=== PATIENT | male | born 1940 | race Caucasian/White ===

== ENCOUNTER 2017-04-14 08:03 | Outpatient (CLI) | payer MEDICARE, OTHER ==
[2017-04-14 15:58] LABS: BASOPHILS # (AUTO) 0.1 10^3/uL (0.0-0.1); BASOPHILS % (AUTO) 1.3 %; EOSINOPHILS # (AUTO) 0.2 10^3/uL (0.0-0.7); EOSINOPHILS % (AUTO) 2.9 %; HCT - HEMATOCRIT 43.4 % (42.0-52.0); HGB - HEMOGLOBIN 14.9 g/dL (14.0-18.0); LYMPHOCYTES # (AUTO) 2.1 10^3/uL (1.5-3.5); LYMPHOCYTES % (AUTO) 33.4 %; MEAN CORPUSCULAR HEMOGLOBIN 32.7 pg (27.0-31.0); MEAN CORPUSCULAR HGB CONC 34.2 g/dL (32.0-36.0); MEAN CORPUSCULAR VOLUME 95.5 fL (80.0-94.0); MEAN PLATELET VOLUME 8.3 fL (7.4-11.4); MONOCYTES # (AUTO) 0.7 10^3/uL (0.0-1.0); MONOCYTES % (AUTO) 11.5 %; NEUTROPHILS # (AUTO) 3.2 10^3/uL (1.5-6.6); NEUTROPHILS % (AUTO) 50.9 %; RED BLOOD COUNT 4.55 10^6/uL (4.70-6.10); UNCORRECTED WHITE BLOOD COUNT 6.3 x10^3/uL; WHITE BLOOD COUNT 6.3 x10^3/uL (4.8-10.8)
[2017-04-14 16:12] LABS: ALBUMIN/GLOBULIN RATIO 1.3 (1.0-2.2); BUN - BLOOD UREA NITROGEN 17 mg/dL (6-20); CALCIUM 9.1 mg/dL (8.5-10.3); CARBON DIOXIDE - CO2 28 mmol/L (21-32); CHLORIDE 103 mmol/L (101-111); CHOL/HDL RATIO 4.1 (<5.0); CHOLESTEROL 231 mg/dL; GFR - MDRD 73 (>89); GLUCOSE 91 mg/dL (70-100); HDL CHOLESTEROL 57 mg/dL; LDL/HDL RATIO 2.9 (<3.6); POTASSIUM 4.5 mmol/L (3.5-5.0); SODIUM 138 mmol/L (135-145); TOTAL PROTEIN 6.9 g/dL (6.7-8.2); TRIGLYCERIDES 57 mg/dL; VLDL CHOLESTEROL 11 mg/dL
== END 2017-04-14 08:04 | disposition home or self-care (01) ==
LOC: LAB.R 08:03
PROVIDERS: ATTEND Internal Medicine
DX: E78.2 Mixed hyperlipidemia (principal); M15.9 Polyosteoarthritis, unspecified; Z79.899 Other long term (current) drug therapy
CPT/HCPCS: 80053; 80061; 85025

== ENCOUNTER 2018-04-20 10:12 | Outpatient (CLI) | payer MEDICARE, OTHER ==
[2018-04-20 15:01] LABS: BASOPHILS # (AUTO) 0.1 10^3/uL (0.0-0.1); BASOPHILS % (AUTO) 1.2 %; EOSINOPHILS # (AUTO) 0.1 10^3/uL (0.0-0.7); EOSINOPHILS % (AUTO) 1.7 %; LYMPHOCYTES % (AUTO) 33.1 %; MEAN CORPUSCULAR HEMOGLOBIN 31.9 pg (27.0-31.0); MEAN CORPUSCULAR HGB CONC 33.7 g/dL (32.0-36.0); MEAN CORPUSCULAR VOLUME 94.6 fL (80.0-94.0); MEAN PLATELET VOLUME 7.8 fL (7.4-11.4); MONOCYTES # (AUTO) 0.6 10^3/uL (0.0-1.0); MONOCYTES % (AUTO) 10.3 %; NEUTROPHILS # (AUTO) 3.3 10^3/uL (1.5-6.6); NEUTROPHILS % (AUTO) 53.7 %; PLT - PLATELET COUNT 269 10^3/uL (130-450); RED BLOOD COUNT 5.01 10^6/uL (4.70-6.10); RED CELL DISTRIBUTION WIDTH 13.7 % (12.0-15.0); WHITE BLOOD COUNT 6.2 x10^3/uL (4.8-10.8)
[2018-04-20 15:15] LABS: ALBUMIN 4.1 g/dL (3.2-5.5); ALBUMIN/GLOBULIN RATIO 1.2 (1.0-2.2); ALKALINE PHOSPHATASE 57 IU/L (42-121); ALT ALANINE AMINOTRANSFERASE 18 IU/L (10-60); AST ASPARTATE AMINOTRANSFERASE 20 IU/L (10-42); BILIRUBIN,TOTAL 1.1 mg/dL (0.2-1.0); BUN - BLOOD UREA NITROGEN 19 mg/dL (6-20); CALCIUM 9.1 mg/dL (8.5-10.3); CARBON DIOXIDE - CO2 28 mmol/L (21-32); CHLORIDE 101 mmol/L (101-111); CHOL/HDL RATIO 4.9 (<5.0); CHOLESTEROL 250 mg/dL; CREATININE 0.9 mg/dL (0.6-1.2); GFR - MDRD 82 (>89); GLUCOSE 91 mg/dL (70-100); HDL CHOLESTEROL 51 mg/dL; LDL CHOLESTEROL,CALCULATED 184 mg/dL; LDL/HDL RATIO 3.6 (<3.6); SODIUM 136 mmol/L (135-145); TOTAL PROTEIN 7.4 g/dL (6.7-8.2); VLDL CHOLESTEROL 15 mg/dL
== END 2018-04-20 10:13 ==
LOC: LAB.R 10:12
PROVIDERS: ATTEND Internal Medicine
DX: Z00.8 Encounter for other general examination (principal); M19.90 Unspecified osteoarthritis, unspecified site; E78.5 Hyperlipidemia, unspecified; Z12.5 Encounter for screening for malignant neoplasm of prostate
CPT/HCPCS: 80053; 80061; 85025; G0103; 36415; 83721; 84153

== ENCOUNTER 2022-12-20 19:25 | Emergency (ER) | payer MEDICARE ==
[2022-12-20 19:35] VITALS: BP 116/78
--- NOTE | 2022-12-20 19:53 | ED Physician Documentation ---
PD HPI UPPER EXT INJURY - Stated complaint Stated Complaint: FELL, LT ARM PX - Chief complaint Chief Complaint: Trauma Ext - History obtained from History obtained from: Patient - History of Present Illness Location: Left Type of injury: Fall Where injury occurred: Home - Additonal information Additional information: This is an 82-year-old male who was vacuuming and he was on his lower step at home when he stumbled and landed onto his left wrist with his arm underneath him, he also landed on some items such as a fire extinguisher. He presents with left wrist pain. He denies any other injuries, no shoulder pain, no rib or pelvis pain, and did not hit his head or lose consciousness. He states no prodromal symptoms prior to the fall that he simply got tangled up while vacuuming. He states he has some chronic balance issues due to right-sided weakness and has fallen in the past. He states his left wrist does not hurt all that bad except when he flexes or extends it but he can "pull on it" and pressed on it without difficulty. He has not attempted any medication or other treatment for this injury. Review of Systems Constitutional: reports: Reviewed and negative, Other (All other systems reviewed and are negative except as described in HPI) PD PAST MEDICAL HISTORY - Allergies Allergies/Adverse Reactions: Allergies Allergy/AdvReac Type Severity Reaction Status Date / Time No Known Drug Allergies Allergy Verified 12/20/22 19:31 PD ED PE NORMAL - Vitals Vital signs reviewed: Yes - General General: Alert and oriented X 3, No acute distress, Well developed/nourished - HEENT HEENT: Atraumatic, Moist mucous membranes - Derm Derm: Normal color, Warm and dry, No rash - Extremities Extremities: Other (There is left wrist swelling to mid forearm with some contusion, no obvious deformity. Patient is able to flex and extend his wrist, move his fingers without difficulty, with his elbow without difficulty, no other extremity injuries.) - Neuro Neuro: Alert and oriented X 3, No motor deficit, Normal speech Eye Opening: Spontaneous Motor: Obeys Commands Verbal: Oriented GCS Score: 15 - Psych Psych: Normal mood, Normal affect Results - Vitals Vitals: Vital Signs - 24 hr 12/20/22 19:31 Temperature 36.5 C Heart Rate 80 Respiratory 16 Rate Blood Pressure 116/78 O2 Saturation 94 Oxygen O2 Source Room air - Rads (name of study) No standard instances Radiology: EMP read indepedently PD Medical Decision Making - ED course Complexity details: reviewed results, re-evaluated patient, d/w patient ED course: This is an 82-year-old male who presents after a trip and fall at home. I have personally reviewed his images and He has sustained a left radial shaft fracture with minimal displacement. He was placed in a sugar-tong splint and sling and advised to follow-up with orthopedic surgery as an outpatient. He has minimal pain, he declines anything other than Tylenol or ibuprofen which he has at home, I advised him to utilize a cool compress and keep arm elevated when possible to assist with swelling. Return precautions reviewed with patient if new or worsening symptoms. Departure - Departure Disposition: 01 Home, Self Care Clinical Impression: Closed left radial fracture Condition: Good Instructions: ED Fx Forearm Radius Ulna No Redu Requ Follow-Up: Lake Mcarthur MD [Provider Admit Priv/Credential] - Comments: You broke your left radius bone. We have placed you in a splint and you will need to follow up with the orthopedic surgeon in 1-2 weeks. You should wear the splint and sling until then. You can take ibuprofen and tylenol as needed for pain. Keep arm elevated when possible and use a cool compress to help with pain and swelling.
--- NOTE | 2022-12-20 20:19 | XRAY Report ---
PROCEDURE: Wrist 4 View LT INDICATIONS: Trauma TECHNIQUE: 4 views of the wrist were acquired. COMPARISON: None available. FINDINGS: Bones: There is a mildly displaced transverse fracture in the distal radial diaphysis with slight uln ar and dorsal displacement as well as mild dorsal angulation. Visualized osseous structures appear os teopenic. No suspicious bony lesions. Scaphoid view: The scaphoid appears intact. Soft tissues: No suspicious soft tissue calcifications. IMPRESSION: 1. Mildly displaced and angulated fractures of the distal radius. Reviewed by: Roberto Downing MD on 12/20/2022 8:17 PM [facility] Approved by: Roberto Downing MD on 12/20/2022 8:17 PM [facility] Station ID: [id number]
== END 2022-12-20 20:20 | disposition home or self-care (01) ==
LOC: MERGE 19:25 → ED 19:25
DX: S52.502A Unspecified fracture of the lower end of left radius, initial encounter for closed fracture (principal); W01.0XXA Fall on same level from slipping, tripping and stumbling without subsequent striking against object, initial encounter; Y93.E3 Activity, vacuuming; Y92.008 Other place in unspecified non-institutional (private) residence as the place of occurrence of the external cause
CPT/HCPCS: 99283

== ENCOUNTER 2022-12-24 15:46 | Outpatient (CLI) | payer MEDICARE ==
--- NOTE | 2022-12-24 12:21 | XRAY Report ---
PROCEDURE: Wrist 3 View LT INDICATIONS: LEFT WRIST FRACTURE TECHNIQUE: 3 views of the wrist were acquired. COMPARISON: None FINDINGS: Bones: There is a comminuted, mildly displaced distal radial diaphyseal fracture with fracture lucenc ies extending to the distal radius without gross intra-articular extension. Soft tissues: No suspicious soft tissue calcifications. IMPRESSION: Comminuted mildly displaced distal radial fracture. Reviewed by: Ceci Hylton MD on 12/24/2022 12:19 PM PST Approved by: Ceci Hylton MD on 12/24/2022 12:19 PM [facility] Station ID: [id number]
== END 2022-12-24 15:47 | disposition home or self-care (01) ==
LOC: DI.WOS 15:46
PROVIDERS: ATTEND Orthopaedic Surgery
DX: S52.592A Other fractures of lower end of left radius, initial encounter for closed fracture (principal)

== ENCOUNTER 2022-12-25 09:46 | Emergency (ER) | payer MEDICARE ==
[2022-12-25 09:56] VITALS: BP 123/57
--- NOTE | 2022-12-25 10:03 | ED Physician Documentation ---
PD HPI UPPER EXT INJURY - Stated complaint Stated Complaint: L HAND INJ - Chief complaint Chief Complaint: Ext Problem - History obtained from History obtained from: Patient - History of Present Illness Location: Left, Forearm, Wrist Type of injury: Fall Timing - onset: How many days ago (he fell 5 days ago and fractured distal radius. Seen in er and had splint placed but removed it as uncomfortable. He mode wrap on only. seen in Ortho office yesterday and they placed cast, but he had them remove it right away due to bulky and uncomfortable. he allowed mode wrap/bulky dressing.) Timing - details: Abrupt onset Associated symptoms: Swelling, Discolored Recently seen: Clinic (seen ortho office yesterday and declined cast. Had dressing/mode placed, and he cut those off last night (dressing) causing lac of hand. Mode wrap still on and has edema in hand today.), Emergency Dept Review of Systems Constitutional: reports: Other (he states he fell again last night as his balance was off using his cane since could not transfer cane to left hand as he does at times.) PD PAST MEDICAL HISTORY - Past Surgical History Past Surgical History: Yes - Allergies Allergies/Adverse Reactions: Allergies Allergy/AdvReac Type Severity Reaction Status Date / Time No Known Drug Allergies Allergy Verified 12/25/22 09:56 - Social History Does the pt smoke?: No Smoking Status: Never smoker Does the pt drink ETOH?: No Does the pt have substance abuse?: No - Immunizations Immunizations are current?: Yes - POLST Patient has POLST: No PD ED PE NORMAL - Vitals Vital signs reviewed: Yes - General General: Alert and oriented X 3, Well developed/nourished - Derm Derm: Normal color, Warm and dry - Extremities Extremities: Other (left forearm to proximal hand with tight mode wrap. distal to that is edema and some bruising of hand and fingers. this improves some after mode wrap removed. small 1 cm lac through skin dorsum hand, without bleeding, but has some serous weeping. ) - Neuro Neuro: Alert and oriented X 3, No motor deficit, No sensory deficit Results - Vitals Vitals: Vital Signs - 24 hr 12/25/22 12/25/22 09:50 11:44 Temperature 36.6 C Heart Rate 78 91 Respiratory 14 16 Rate Blood Pressure 123/57 L O2 Saturation 96 99 Oxygen O2 Source Room air - Rads (name of study) left wrist Radiology: Prelim report reviewed, EMP read indepedently (fracture appears in similar location to prior films. ), See rad report PD Medical Decision Making - ED course Complexity details: considered differential (he is able to state that he knows a cast/splint is best for his fracture, but seems indifferent about it since it was uncomfortable in the office, so had them take off cast. The mode wrap seemed too tight that he had on, leading to swelling of hand distally. Small lac of skin that is weeping serous. ), d/w patient Social Determinants of Health: he takes care of himself at home. Uses cane in right hand alternatingly depending on where he is walking, so needs to be able to use fingers/thumb and the cast from ortho office was too bulky. he will try the velcro splint that I placed on wrist. ED course: xray showed no further displacement of the fracture with the fall again last night. The laceration of hand is not bleeding. He is willing to have on a velcro splint without mode wrap as that did not feel too bulky for him and able to remove it at times. He said he will have it on "most of the time". Departure - Departure Disposition: 01 Home, Self Care Clinical Impression: Aftercare for cast or splint check or change Condition: Stable Record reviewed to determine appropriate education?: Yes Follow-Up: [facility] [Provider Group] Comments: Use the Velcro splint to help support the fracture. Elevate and rest your hand often. I think the swelling should go down in the hand now that the Mode wrap is off as I feel it was on too tight and causing swelling distally. Tylenol ibuprofen as needed for pains. Use the splint for the next 4 weeks. Follow-up with orthopedics in about 7 to 10 days. Discharge Date/Time: 12/25/22 11:44
--- OUTSIDE RECORDS SUMMARY | 2022-12-25 10:25 | EXTERNAL MEDICAL SUMMARY RPT | Continuity of Care Document ---
:1940 Author Organization [facility] Address [address] [place] [address] Phone Care Team Providers Name Role Phone Unavailable Unavailable Unavailable José Manuel Ornelas M.D. Unavailable Unavailable Allergies No information. Encounters No information. Functional Status No information. Immunizations No information. Medications No information. Problems date description facility 2022-12-23 00:00 Pain in wrist All 2022-12-23 00:00 Pain in joint involving forearm All 2022-12-23 00:00 Pain in left wrist All 2022-12-24 00:00 Closed fracture of shaft of radius All 2022-12-24 00:00 Nondisplaced oblique fracture of shaft o f left radius, All initial encounter for closed fracture Procedures date description facility 2022-12-24 00:00 Short arm cast, application All 2022-12-24 00:00 Short arm cast, material, adult All Results/Labs No information. Social History No information. Vital Signs date measurement value units 2022-12-24 00:00 BP_diastolic 81 mmHg 2022-12-24 00:00 BP_systolic 145 mmHg 2022-12-24 00:00 respiration_rate 16 /min 2022-12-24 00:00 temperature_metric 36.44 C 2022-12-24 00:00 temperature_standard 97.6 F
--- NOTE | 2022-12-25 10:34 | XRAY Report ---
PROCEDURE: Wrist 4 View LT INDICATIONS: Trauma TECHNIQUE: 4 views of the wrist were acquired. COMPARISON: None FINDINGS: Bones: There is a comminuted mildly displaced fracture within the distal radial diaphysis. There is v concepcion slight ventral angulation of distal fragment. No suspicious bony lesions. Scaphoid view: No visualized scaphoid fracture. Soft tissues: No suspicious soft tissue calcifications. IMPRESSION: Comminuted mildly displaced distal radial diaphyseal fracture. Reviewed by: Ceci Hylton MD on 12/25/2022 10:33 AM [facility] Approved by: Ceci Hylton MD on 12/25/2022 10:33 AM [facility] Station ID: [id number]
== END 2022-12-25 11:44 | disposition home or self-care (01) ==
LOC: ED 09:46
DX: S52.592A Other fractures of lower end of left radius, initial encounter for closed fracture (principal); W19.XXXA Unspecified fall, initial encounter; Z46.89 Encounter for fitting and adjustment of other specified devices
CPT/HCPCS: 99283

== ENCOUNTER 2023-02-02 14:03 | Outpatient (CLI) | payer MEDICARE ==
--- NOTE | 2023-02-02 12:48 | XRAY Report ---
PROCEDURE: Wrist 3 View LT INDICATIONS: LEFT WRIST FRACTURE TECHNIQUE: 4 views of the wrist were acquired. COMPARISON: 12/25/2022 FINDINGS: Bones: Mildly comminuted and displaced fracture of the distal radial diaphysis. There is dorsal angul ation of the fracture which is mildly displaced and is comminuted. The bones have osteopenia. Soft tissues: No suspicious soft tissue calcifications. IMPRESSION: Displaced and comminuted distal radius fracture with dorsal angulation. Reviewed by: Jose Chang on 02/02/2023 12:47 PM PDT Approved by: Jose Chang on 02/02/2023 12:47 PM PDT Station ID: [id number]
== END 2023-02-02 14:04 | disposition home or self-care (01) ==
LOC: DI.WOS 14:03
PROVIDERS: ATTEND Orthopaedic Surgery
DX: S52.335A Nondisplaced oblique fracture of shaft of left radius, initial encounter for closed fracture (principal)

== ENCOUNTER 2023-02-23 18:50 | Outpatient (CLI) | payer MEDICARE | END 2023-02-23 18:51 | disposition critical access hospital (66) | LOC: EMS 18:50 | DX: R10.12 Left upper quadrant pain (principal); M25.512 Pain in left shoulder | CPT/HCPCS: A0425; A0427 ==

== ENCOUNTER 2023-02-23 19:09 | Inpatient (IN) | payer MEDICARE ==
[2023-02-23 20:19] LABS: BASOPHILS % (AUTO) 0.1 %; LYMPHOCYTES # (AUTO) 0.8 10^3/uL (1.5-3.5); LYMPHOCYTES % (AUTO) 11.4 %; MEAN CORPUSCULAR HEMOGLOBIN 32.8 pg (27.0-31.0); MEAN CORPUSCULAR HGB CONC 32.6 g/dL (32.0-36.0); MEAN CORPUSCULAR VOLUME 100.5 fL (80.0-94.0); MEAN PLATELET VOLUME 8.8 fL (7.4-11.4); MONOCYTES # (AUTO) 0.3 10^3/uL (0.0-1.0); MONOCYTES % (AUTO) 4.5 %; NEUTROPHILS # (AUTO) 5.8 10^3/uL (1.5-6.6); NEUTROPHILS % (AUTO) 83.7 %; PLT - PLATELET COUNT 312 10^3/uL (130-450); RED BLOOD COUNT 1.86 10^6/uL (4.70-6.10); RED CELL DISTRIBUTION WIDTH 15.1 % (12.0-15.0); WHITE BLOOD COUNT 6.9 x10^3/uL (4.8-10.8)
[2023-02-23 20:26] LABS: HGB - HEMOGLOBIN 6.1 g/dL (14.0-18.0)
[2023-02-23 20:27] LABS: HCT - HEMATOCRIT 18.7 % (42.0-52.0)
--- NOTE | 2023-02-23 20:27 | ED Physician Documentation ---
PD HPI ABD PAIN - Stated complaint Stated Complaint: ABD PX - Chief complaint Chief Complaint: Abd Pain - History obtained from History obtained from: Patient - Additional information Additional information: HPI from patient. Patient is brought in by ambulance. Patient complains of diffuse abdominal pain, predominantly left lower quadrant, rating to his left shoulder. He says the pain began "a couple of days ago" (per patient). Denies nausea, denies vomiting, denies fever. He says that initially Aleve and aspirin were controlling the pain, but during the course of the day today, the pain became increasingly severe and is no longer controlled with these medications. He denies history of similar symptoms. Pain is worse with movement, palpation. No ameliorating factors. HPI is somewhat limited due to patient answering every few questions with request for pain medication rather than an answer to the question being asked. Review of Systems Constitutional: denies: Fever PD PAST MEDICAL HISTORY - Past Medical History Past Medical History: No - Allergies Allergies/Adverse Reactions: Allergies Allergy/AdvReac Type Severity Reaction Status Date / Time No Known Drug Allergies Allergy Verified 02/23/23 19:29 - Social History Does the pt smoke?: No Smoking Status: Never smoker Does the pt drink ETOH?: No Does the pt have substance abuse?: No - Immunizations Immunizations are current?: Yes - POLST Patient has POLST: No PD ED PE NORMAL - Vitals Vital signs reviewed: Yes - General General: Alert and oriented X 3, Well developed/nourished, Other (Appears to be in significant painful distress, recurrently saying "please! Help me!" although he does answer majority of my questions) - HEENT HEENT: Other (tacky/pasty mucous membranes) - Neck Neck: Supple, no meningeal sign - Cardiac Cardiac: RRR, No murmur - Respiratory Respiratory: No respiratory distress, Clear bilaterally - Abdomen Abdomen: Soft, Non distended, Other (diffuse TTP with rebound tenderness and voluntary guarding) - Derm Derm: Normal color, Warm and dry PD ED PE EXPANDED - Rectal Rectal: Normal Tone. No: Mass, Hemorrhoid Results - Vitals Vitals: Vital Signs - 24 hr 02/23/23 02/23/23 02/23/23 19:30 20:45 22:04 Temperature 36.5 C Heart Rate 80 96 93 Heart Rate [ Monitoring electrodes] Respiratory 18 28 H 15 Rate Blood Pressure 90/78 97/41 L 90/63 Blood Pressure [Left Brachial artery] O2 Saturation 90 L 99 98 If not protocol 2 : Oxygen Flow, liters/minute 02/23/23 02/23/23 02/23/23 22:36 22:59 23:30 Temperature 36.7 C 36.5 C 36.3 C L Heart Rate Heart Rate [ 93 94 100 Monitoring electrodes] Respiratory 18 13 21 Rate Blood Pressure Blood Pressure 92/55 L 81/56 L 96/68 [Left Brachial artery] O2 Saturation 95 96 95 If not protocol 2 4 4 : Oxygen Flow, liters/minute 02/24/23 02/24/23 02/24/23 00:08 00:09 00:32 Temperature 97.6 C H Heart Rate 97 113 H Heart Rate [ 95 Monitoring electrodes] Respiratory 19 15 16 Rate Blood Pressure 81/57 L 88/72 L Blood Pressure 81/57 L [Left Brachial artery] O2 Saturation 96 99 99 If not protocol 4 4 : Oxygen Flow, liters/minute 02/24/23 02/24/23 01:06 01:32 Temperature 36.6 C 36.8 C Heart Rate Heart Rate [ 95 99 Monitoring electrodes] Respiratory 17 17 Rate Blood Pressure Blood Pressure 84/54 L 86/55 L [Left Brachial artery] O2 Saturation 96 98 If not protocol : Oxygen Flow, liters/minute Oxygen O2 Source Room air - EKG (time done) No standard instances EKG releavant findings:: EKG personally interpreted by author of this note. Relevant findings are: Rate: Rate (enter#) (95) Rhythm: NSR Gonzales: LAD Intervals: Normal NV QRS: Normal Ischemia: Normal ST segments Other comments: Other comments (PAC, PVCs) - Labs Labs: Microbiology 02/23/23 20:40 Occult Blood - Final Stool Laboratory Tests 02/23/23 02/23/23 02/23/23 20:05 20:05 20:05 WBC 6.9 RBC 1.86 L Hgb 6.1 L* Hct 18.7 L* MCV 100.5 H MCH 32.8 H MCHC 32.6 RDW 15.1 H Plt Count 312 MPV 8.8 Neut # (Auto) 5.8 Lymph # (Auto) 0.[address] [place] # (Auto) 0.3 Eos # (Auto) 0.0 Baso # (Auto) 0.0 Absolute Nucleated RBC 0.00 Nucleated RBC % 0.0 PT INR APTT Sodium 135 Potassium 3.2 L Chloride 102 Carbon Dioxide 22 Anion Gap 11.0 BUN 33 H Creatinine 0.9 Estimated GFR (MDRD) 81 L Glucose 87 Calcium 7.5 L Total Bilirubin 0.6 AST 14 ALT 13 Alkaline Phosphatase 38 L Troponin I High Sens 7.1 Total Protein 4.7 L Albumin 2.6 L Globulin 2.1 Albumin/Globulin Ratio 1.2 Lipase 50 Blood Type Blood Type Recheck Antibody Screen Crossmatch IS Only 02/23/23 02/23/23 02/23/23 20:05 20:38 20:38 WBC RBC Hgb Hct MCV MCH MCHC RDW Plt Count MPV Neut # (Auto) Lymph # (Auto) [place] # (Auto) Eos # (Auto) Baso # (Auto) Absolute Nucleated RBC Nucleated RBC % PT 14.5 H INR 1.3 H APTT 22.8 L Sodium Potassium Chloride Carbon Dioxide Anion Gap BUN Creatinine Estimated GFR (MDRD) Glucose Calcium Total Bilirubin AST ALT Alkaline Phosphatase Troponin I High Sens Total Protein Albumin Globulin Albumin/Globulin Ratio Lipase Blood Type B POSITIVE Blood Type Recheck B POSITIVE Antibody Screen NEGATIVE Crossmatch IS Only See Detail - Rads (name of study) upright CXR Relevant Findings:: Prelim report reviewed (radiologist's interpretation is "low lung volumes with left retrocardiac atelectasis or consolidation"), EMP independent interpretation of test (I reviewed this film and findings are concerning for free air under diaphragm), See rad report CT A/P with IV contrast Relevant Findings:: Prelim report reviewed, See rad report PD Medical Decision Making - ED course Complexity details: reviewed results, re-evaluated patient, considered differential, d/w patient ED course: Patient's blood pressures are 90s to 100s systolic. He is thus given 1 L of normal saline in addition to IV fluids already received en route by EMS. He was given fentanyl en route but does not appear to have had adequate relief with this. Considering his borderline blood pressures, I ordered 0.5mg IV dilaudid to help with pain relief but the lower dose so as to minimize effect on blood pressure. Hemoglobin is very low at 6.1. I performed a rectal exam; there is no obvious blood on the gloved finger, although I also do not see any stool. Nonetheless, I applied the gloved finger to the guaiac card and it is sent to the lab for guaiac. He is typed and screened and crossed for 2 units of PRBCs. guaiac result is POSITIVE for occult blood. Reevaluated 21:55: patient is asleep, NAD, SBP 116 and normal pulse rate and NSR on monitor. Opens eyes briefly to voice, reports feeling much improved. As noted above, my interpretation of the upper chest x-ray is concerning for free air under the diaphragm on the right. Radiologist interpretation does not include mention of free air. A CAT scan of the abdomen pelvis is then ordered And my interpretation of these images is moderate amount of free air; subsequently, the radiologist interpretation is available and this is interpreted by radiology as small to moderate amount of free air and other findings that are concerning for perforated gastric ulcer. Dr. Norwood, on-call surgery for [facility], is consulted. He then came to the emergency department and evaluated the patient. Dr. Norwood does not recommend surgery, as he thinks the patient would not survive such a procedure. He does recommend admission for transfusions as needed for the anemia, IV antibiotics, IV fluids, and analgesia. Dr. Norwood says that he spoke with the patient specifically about a central line and that the patient refuses a central line. I then consulted telehealth. After the telehealth physician evaluated the patient, I then spoke to the telehealth physician again; she says that the patient is very clear and vocal about wanting comfort measures only. As such, he will be held in the emergency department until an appropriate bed is available (at this time, only an intensive care unit bed is available, with no med/surgical beds available). I subsequently reevaluated the patient. Early in the patient's stay, I made multiple times to ascertain his wishes regarding what treatment he would and would not want. All along, he was very clear about wanting to be DNR. Early inpatient stay, he was not clear regarding wanting full treatment, selective treatment, or comfort measures. For example, he would frequently interrupt such conversations to tell me variations on "I just want the pain to stop". When I would explain that the pain medications would only temporarily stop his pain, and that he might need further treatment such as surgery, he would invariably repeat a noncontributory variation on wanting the pain to stop. Given the CT findings, it is understandable that he is only interested in focused on pain control at the time of these conversations. Late in patient's ER stay, on one of my many reevaluations the patient, he is sleeping, awakens to voice, and is actually smiling and thanks me for controlling his pain. At this time, I discussed with him the POLST form; he confirms, definitively, that he wishes to be DNR and wishes comfort measures only. I explained to him that this would include stopping antibiotics and focusing solely on pain medication, as well as IV fluids to keep him hydrated. I explained to him that he might as a result of his illness, and he says he accepts this and reiterates that he only wants comfort measures. He confirms that he does not want a central line, does not want antibiotics. I again reviewed the POLST form with the patient, checking off the boxes appropriate to the above, and the patient signed the POLST form as did I. Patient's blood pressure steadily declined during ED stay, initially responding to IV fluids but, later in ED stay, consistently going further into hypotensive ranges. Departure - Departure Disposition: [facility] DC/Xfer Clinical Impression: Perforated abdominal viscus Anemia Qualifiers: Anemia type: unspecified type Qualified Code(s): D64.9 - Anemia, unspecified Condition: Serious Discharge Date/Time: 02/24/23 09:07
--- NOTE | 2023-02-23 20:39 | XRAY Report ---
PROCEDURE: Chest 1 View X-Ray INDICATIONS: chest pain TECHNIQUE: One view of the chest was acquired. COMPARISON: None. FINDINGS: Surgical changes and devices: None. Lungs and pleura: There are low lung volumes. Indistinct medial left retrocardiac opacities consiste nt with atelectasis or consolidation. No pleural effusions or pneumothorax. Mediastinum: Mediastinal contours appear normal. Heart size is normal. Bones and chest wall: No suspicious bony lesions. Overlying soft tissues appear unremarkable. IMPRESSION: 1. Low lung volumes with left retrocardiac atelectasis or consolidation. Reviewed by: Roberto Downing MD on 02/23/2023 8:38 PM PDT Approved by: Roberto Downing MD on 02/23/2023 8:38 PM PDT Station ID: [id number]
[2023-02-23] MEDS ORDERED: HYDROmorphone 1 MG/ML CARPUJECT IVP STA ×3 (20:45→20:49)
[2023-02-23] MEDS ORDERED: ONDANSETRON 4 MG/2 ML VIAL IVP STA (20:46)
[2023-02-23] MEDS ORDERED: SODIUM CHLORIDE 0.9% 1,000 ML IV STA ×3 (20:46→23:10)
[2023-02-23] MEDS ORDERED: PIPERACILLIN/TAZOBACTAM 4.5 GM in SODIUM CHLORIDE 0.9% MINIBAG 100 ML IV STA (20:50)
[2023-02-23 20:55] LABS: INR 1.3 (0.8-1.2); PT - PROTHROMBIN TIME 14.5 secs (9.9-12.6)
[2023-02-23 21:02] LABS: PARTIAL THROMBOPLASTIN TIME 22.8 secs (24.9-33.3)
[2023-02-23 21:31] LABS: ALBUMIN 2.6 g/dL (3.2-5.5); ALBUMIN/GLOBULIN RATIO 1.2 (1.0-2.2); BILIRUBIN,TOTAL 0.6 mg/dL (0.2-1.0); CALCIUM 7.5 mg/dL (8.5-10.3); CREATININE 0.9 mg/dL (0.6-1.2); POTASSIUM 3.2 mmol/L (3.5-5.0); TOTAL PROTEIN 4.7 g/dL (6.7-8.2)
[2023-02-23] MEDS ORDERED: iohexoL-300 100 ML VIAL ONE (21:46)
[2023-02-23] MEDS ORDERED: PANTOPRAZOLE 40 MG VIAL IVP STA (23:31)
--- NOTE | 2023-02-23 23:40 | CT Report ---
PROCEDURE: ABDOMEN/PELVIS W INDICATIONS: abd. pain CONTRAST: Omni 300 100ml TECHNIQUE: After the administration of intravenous contrast, 5 mm thick sections acquired from the diaphragms to the symphysis. 5 mm thick coronal and sagittal reformats were acquired. For radiation dose reducti on, the following was used: automated exposure control, adjustment of mA and/or kV according to carlos ent size. COMPARISON: None. FINDINGS: Image quality: There is beam hardening artifact slightly limiting evaluation. Lung bases:There are small bilateral pleural effusions with associated compressive atelectasis. Heart: Heart is normal in size. ABDOMEN: Liver: No mass lesion. Gallbladder: Within normal limits without calcified gallstones. Biliary ducts: No biliary ductal dilatation. Pancreas: Unremarkable. Spleen: Normal in size. Adrenal Glands: No adrenal nodules. Kidneys and Ureters: No hydronephrosis. Stomach and Bowel:There is mild gastric wall thickening most prominent in the antrum which demonstra kaylen indistinct wall enhancement posteriorly suspicious for site of perforation. There are a few segme nts of mild small bowel wall thickening within the left abdomen which are nonspecific and may represe nt a mild enteritis versus reactive changes. No pericecal inflammatory changes to suggest appendiciti s. The colon demonstrates normal caliber and wall thickness. Peritoneum: There is a small to moderate amount of intraperineal free air in the upper abdomen. Ther e is also a small to moderate amount of intraperitoneal free fluid in the abdomen. Ventral Wall: No hernia. Abdominal Nodes: No retroperitoneal or mesenteric adenopathy by size criteria. Vessels: Aorta and inferior vena cava are normal in size. PELVIS: Pelvic Organs: Unremarkable. Bladder:There is prominent distention of the bladder. Pelvic Nodes: No enlarged lymph nodes. Miscellaneous: No inguinal hernias. Bones: Visualized osseous structures demonstrate no suspicious lesions. IMPRESSION: 1. Small to moderate amount of pneumoperitoneum and free fluid in the upper abdomen consistent with s equelae of perforated viscus. 2. Focal area of hypoenhancement in the posterior gastric wall within the antrum suspicious for site of perforation. Findings suggest sequelae of a perforated gastric ulcer. Findings discussed Dr. Simpson on 02/23/2023 at 11:25 PM. 3. Mild segmental small bowel wall thickening within the left abdomen consistent with a mild enteriti s or reactive changes. Reviewed by: Roberto Downing MD on 02/23/2023 11:39 PM PDT Approved by: Roberto Downing MD on 02/23/2023 11:39 PM PDT Station ID: [id number]
--- NOTE | 2023-02-24 00:16 | CONSULTATION NOTE ---
Referring Provider Consult Date: 02/24/23 Chief Complaint - Chief Complaint Chief Complaint: abdominal pain and wants to History of Present Illness - History Obtained From Records Reviewed: yes History obtained from: pt and neighbor friend Exam Limitations: he does not want to be examined - History of Present Illness HPI Comment/Other: 4 days of abdominal pain. getting worse. his ex lives in [place]. he is here with a neighbor friend. they both state his quality of life over the last several years has been poor. he is adamant about no procedures and his thinking seems very clear. he states he is ready to or even wants to . History - Past Medical History MRSA Hx?: No - POLST Patient has POLST: No Meds/Allgy - Allergies Allergies/Adverse Reactions: Allergies Allergy/AdvReac Type Severity Reaction Status Date / Time No Known Drug Allergies Allergy Verified 02/23/23 19:29 Review of Systems - Constitutional Constitutional: reports: Fatigue (he has been taking aspirin and aleve. no bloody or black bms. 10 pt ros as above otherwise unremarkable) Exam - Vital Signs Reviewed Vital Signs: Yes Vital Signs: Vital Signs x48h Temp Pulse Pulse Resp BP BP Pulse Ox 02/23/23 23:30 36.3 C L 100 21 96/68 95 02/23/23 22:59 36.5 C 94 13 81/56 L 96 02/23/23 22:36 36.7 C 93 18 92/55 L 95 02/23/23 22:04 93 15 90/63 98 02/23/23 20:45 96 28 H 97/41 L 99 02/23/23 19:30 36.5 C 80 18 90/78 90 L O2 Flow Rate 02/23/23 23:30 4 02/23/23 22:59 4 02/23/23 22:36 2 02/23/23 22:04 2 02/23/23 20:45 02/23/23 19:30 - Physical Exam General Appearance: positive: No acute distress, Alert Eyes Bilateral: positive: PERRL, No scleral icterus ENT: positive: No signs of dehydration Neck: positive: No JVD, Trachea midline Respiratory: positive: No respiratory distress Cardiovascular: positive: Regular rate & rhythm Abdomen: positive: Other (refusing exam) Neurologic/Psychiatric: positive: Oriented x3 Conclusion/Plan - Problem List (1) Anemia Conclusion/Plan: likely chronic ulcer disease with small microperforation few days ago. he is very clear that he does not want any invasive procedures including even a zaman cath at this time. his bladder is very enlarged on ct. I did discuss with him I believe he is more likely to with surgery than without surgery given his history and ct scan findings of microperforation and thin ascitic fluid and nadine re anemia. I do recommend medicine admit for blood, ivf, antibiotics. he has not had n/v. I do not believe an ngt is necessary. a gastrografin swallow/ ugi would be useful to assure his microperforation has healed over Qualifiers: Anemia type: unspecified type Qualified Code(s): D64.9 - Anemia, unspecified - Lab Results Fish Bones: 02/23/23 20:05 02/23/23 20:05 - Diagnostic Imaging Results Diagnostic Imaging Results: positive: Read independently (likely microperf pud few days ago with scant free area and thin ascitic fluid)
[2023-02-24] MEDS ORDERED: HYDROmorphone 1 MG/ML CARPUJECT IVP STA ×3 (00:36→08:11)
[2023-02-24] MEDS ORDERED: iohexoL-300 100 ML VIAL IVP ONE (01:04)
--- NOTE | 2023-02-24 01:18 | HISTORY & PHYSICAL EXAMINATION ---
Chief Complaint - Chief Complaint Chief Complaint: Abdominal pain History of Present Illness - Admitted From Admitted From:: ER - History Obtained From Records Reviewed: Yes History obtained from: Patient, medical staff, chart Exam Limitations: H&P was conducted via video remotely, using Access Cart. - History of Present Illness HPI Comment/Other: 82 yo M with no PMH and on no meds presented via EMS to the ER with c/o 4 day h/o abdominal pain. Pt c/o diffuse abdominal pain, worse with movement. Pt took Alleve and ASA with minimal relief. Pain is radiating to L shoulder. No F/C. No N/V/D. Pt has been depressed. Prior to this, he had asked neighbor to find a way to end his life. He feels that he has no quality of life. In the ER, BP 81/56, Hgb 6.1, MCV 100.5, K 3.2, FOB+, INR 1.3 CXR: Fer CT Abdo: small-mod pneumoperitoneum + free fluid in upper abdo c/w sequelae of perforated viscous, possibly perforated gastric ulcer ER Physician consulted Dr. Norwood, General Surgeon, who did not recommend surgery as he does not believe pt would survive surgery; recommends admit to Hospitalist service. Pt was given IVF, Zosyn, 2U PRBC, Dilaudid, Zofran, Protonix IV in the ER. History - Past Medical History MRSA Hx?: No - POLST Patient has POLST: No Meds/Allgy - Allergies Allergies/Adverse Reactions: Allergies Allergy/AdvReac Type Severity Reaction Status Date / Time No Known Drug Allergies Allergy Verified 02/23/23 19:29 Review of Systems - All Other Systems All Other Systems: reports: Reviewed and negative Exam - Vital Signs Reviewed Vital Signs: Yes Vital Signs: Vital Signs x48h Temp Pulse Pulse Resp BP BP Pulse Ox 02/24/23 01:06 36.6 C 95 17 84/54 L 96 02/24/23 00:32 113 H 16 88/72 L 99 02/24/23 00:09 97 15 81/57 L 99 02/24/23 00:08 97.6 C H 95 19 81/57 L 96 02/23/23 23:30 36.3 C L 100 21 96/68 95 02/23/23 22:59 36.5 C 94 13 81/56 L 96 02/23/23 22:36 36.7 C 93 18 92/55 L 95 02/23/23 22:04 93 15 90/63 98 02/23/23 20:45 96 28 H 97/41 L 99 02/23/23 19:30 36.5 C 80 18 90/78 90 L O2 Flow Rate 02/24/23 01:06 02/24/23 00:32 02/24/23 00:09 4 02/24/23 00:08 4 02/23/23 23:30 4 02/23/23 22:59 4 02/23/23 22:36 2 02/23/23 22:04 2 02/23/23 20:45 02/23/23 19:30 - Physical Exam General Appearance: positive: Moderate distress Eyes Bilateral: positive: EOMI, No scleral icterus ENT: positive: Dry mucous membranes Respiratory: positive: Other (Access cart stethoscope not working; per ER Provider: CTA B/L) Cardiovascular: positive: Other (Access cart stethoscope not working; per ER Provider: RRR, no murmurs) Abdomen: positive: Other (per ER Provider: non-distended, Soft, diffuse TTP with rebound tenderness and voluntary guarding) Rectal: positive: Other (per ER Provider: brown stool, heme +) Extremities: positive: Full ROM, No pedal edema Neurologic/Psychiatric: positive: Oriented x3, CN's nml (2-12) Conclusion/Plan - Problem List (1) Perforated abdominal viscus Conclusion/Plan: Perforated Abdominal Viscus, possibly perforated gastric ulcer Abdominal Pain Hypotension Anemia -BP 81/56, Hgb 6.1, MCV 100.5, K 3.2, FOB+, INR 1.3 -CXR: Fer -CT Abdo: small-mod pneumoperitoneum + free fluid in upper abdo c/w sequelae of perforated viscous, possibly perforated gastric ulcer -ER Physician consulted Dr. Norwood, General Surgeon, who did not recommend surgery as he does not believe pt would survive surgery; recommends admit to Hospitalist service. -Pt was given IVF, Zosyn, 2U PRBC, Dilaudid, Zofran, Protonix IV in the ER. -D/W pt: he wants to be DNR/DNI and he wants comfort care only measures now. He does not want any further aggressive measures, including blood transfusions, pressors, surgery, central lines, antibiotics, IVF, Ahn catheters. He would like pain medications and comfort care. -admit to Med surg on comfort care -Palliative care consult in AM - Lab Results Fish Bones: 02/23/23 20:05 02/23/23 20:05
--- NOTE | 2023-02-24 01:29 | ADVANCE CARE PLANNING NOTE ---
Advance Care Planning - Planning Encounter Date: 02/24/23 Time: 01:25 Purpose: End of Life Decision making Parties in Attendance: Medical staff: nurse x 2, (myself), patient Decisional Capacity of the Patient: Able to make decisions - Encounter Subjective/Patient's Story: Pt c/o 4 day h/o severe abdo pain Objective/Medical Story: Pt with perforated esophagus, low BP, anemia, not a candidate for surgery, as surgeon does not believe he will live through surgery Goals of Care: Comfort Care Pt expresses that he wants to be made comfortable, even at the cost of losing his life Plan: Will admit for comfort care only; pt will be DNR. Code Status: Do Not Attempt Resuscitation Time spent on advance care plannin minutes
[2023-02-24] MEDS ORDERED: MORPHINE 2 MG/ML CARPUJECT IVP PRN (01:47)
[2023-02-24] MEDS ORDERED: ONDANSETRON ODT 4 MG TABLET TL PRN (01:47)
[2023-02-24] MEDS ORDERED: ONDANSETRON 4 MG/2 ML VIAL IVP PRN (01:47)
[2023-02-24] MEDS ORDERED: ACETAMINOPHEN 160 MG/5 ML SUSP UDC PO PRN (01:47)
[2023-02-24 06:34] LABS: BILIRUBIN,URINE NEGATIVE (NEGATIVE); GLUCOSE, URINE (UA) NEGATIVE (NEGATIVE); KETONES,URINE (UA) TRACE mg/dL (NEGATIVE); LEUKOCYTE ESTERASE, URINE NEGATIVE (NEGATIVE); NITRITE,URINE NEGATIVE (NEGATIVE); OCCULT BLOOD,URINE NEGATIVE (NEGATIVE); PH,URINE 5.5 PH (5.0-7.5); PROTEIN,URINE NEGATIVE (NEGATIVE); UROBILINOGEN,URINE 0.2 (NORMAL) E.U./dL (NORMAL)
[2023-02-24 06:36] LABS: CLARITY,URINE CLEAR (CLEAR)
[2023-02-24] MEDS ORDERED: MIN OIL/DIMETHICON/COCONUT OIL 92 GM TUBE TOP PRN (10:14)
--- NOTE | 2023-02-24 11:27 | PROVIDER PROGRESS NOTE ---
Subjective - Subjective Subjective: resting comfortably. Objective - Vital Signs/Intake & Output Vital Signs: Vital Signs x48h Temp Pulse Pulse Resp BP BP Pulse Ox 02/24/23 09:23 74 20 72/44 L 94 02/24/23 07:05 90 10 L 70/40 L 90 L 02/24/23 06:22 92 14 80/52 L 87 L 02/24/23 03:53 36.6 C 12 84/67 L 97 Intake & Output: Intake & Output 02/21/23 02/22/23 02/23/23 02/24/23 23:59 23:59 23:59 23:59 Intake Total 1100 1600 Balance 1100 1600 - Objective General Appearance: positive: No acute distress, Other (resting comfortably.) - Lab Results Fish Bones: 02/23/23 20:05 02/23/23 20:05 Other Labs: Lab Results x24hrs 02/24/23 02/23/23 02/23/23 Range/Units 06:20 20:38 20:38 WBC (4.8-10.8) x10^3/uL RBC (4.70-6.10) 10^6/uL Hgb (14.0-18.0) g/dL Hct (42.0-52.0) % MCV (80.0-94.0) fL MCH (27.0-31.0) pg MCHC (32.0-36.0) g/dL RDW (12.0-15.0) % Plt Count (130-450) 10^3/uL MPV (7.4-11.4) fL Neut # (Auto) (1.5-6.6) 10^3/uL Lymph # (Auto) (1.5-3.5) 10^3/uL [place] # (Auto) (0.0-1.0) 10^3/uL Eos # (Auto) (0.0-0.7) 10^3/uL Baso # (Auto) (0.0-0.1) 10^3/uL Absolute Nucleated RBC x10^3/uL Nucleated RBC % /100WBC PT 14.5 H (9.9-12.6) secs INR 1.3 H (0.8-1.2) APTT 22.8 L (24.9-33.3) secs Sodium (135-145) mmol/L Potassium (3.5-5.0) mmol/L Chloride (101-111) mmol/L Carbon Dioxide (21-32) mmol/L Anion Gap (6-13) BUN (6-20) mg/dL Creatinine (0.6-1.2) mg/dL Estimated GFR (MDRD) (>89) Glucose (70-100) mg/dL Calcium (8.5-10.3) mg/dL Total Bilirubin (0.2-1.0) mg/dL AST (10-42) IU/L ALT (10-60) IU/L Alkaline Phosphatase (42-121) IU/L Troponin I High Sens (2.3-19.7) ng/L Total Protein (6.7-8.2) g/dL Albumin (3.2-5.5) g/dL Globulin (2.1-4.2) g/dL Albumin/Globulin Ratio (1.0-2.2) Lipase (22-51) U/L Urine Color YELLOW Urine Clarity CLEAR (CLEAR) Urine pH 5.5 (5.0-7.5) PH Ur Specific [place] 1.015 (1.002-1.030) Urine Protein NEGATIVE (NEGATIVE) mg/dL Urine Glucose (UA) NEGATIVE (NEGATIVE) mg/dL Urine Ketones TRACE (NEGATIVE) mg/dL Urine Occult Blood NEGATIVE (NEGATIVE) Urine Nitrite NEGATIVE (NEGATIVE) Urine Bilirubin NEGATIVE (NEGATIVE) Urine Urobilinogen 0.2 (NORMAL) (NORMAL) E.U./dL Ur Leukocyte Esterase NEGATIVE (NEGATIVE) Ur Microscopic Review NOT INDICATED Urine Culture Comments NOT INDICATED Blood Type B POSITIVE Blood Type Recheck Antibody Screen NEGATIVE Crossmatch IS Only See Detail 02/23/23 02/23/23 02/23/23 Range/Units 20:05 20:05 20:05 WBC (4.8-10.8) x10^3/uL RBC (4.70-6.10) 10^6/uL Hgb (14.0-18.0) g/dL Hct (42.0-52.0) % MCV (80.0-94.0) fL MCH (27.0-31.0) pg MCHC (32.0-36.0) g/dL RDW (12.0-15.0) % Plt Count (130-450) 10^3/uL MPV (7.4-11.4) fL Neut # (Auto) (1.5-6.6) 10^3/uL Lymph # (Auto) (1.5-3.5) 10^3/uL [place] # (Auto) (0.0-1.0) 10^3/uL Eos # (Auto) (0.0-0.7) 10^3/uL Baso # (Auto) (0.0-0.1) 10^3/uL Absolute Nucleated RBC x10^3/uL Nucleated RBC % /100WBC PT (9.9-12.6) secs INR (0.8-1.2) APTT (24.9-33.3) secs Sodium 135 (135-145) mmol/L Potassium 3.2 L (3.5-5.0) mmol/L Chloride 102 (101-111) mmol/L Carbon Dioxide 22 (21-32) mmol/L Anion Gap 11.0 (6-13) BUN 33 H (6-20) mg/dL Creatinine 0.9 (0.6-1.2) mg/dL Estimated GFR (MDRD) 81 L (>89) Glucose 87 (70-100) mg/dL Calcium 7.5 L (8.5-10.3) mg/dL Total Bilirubin 0.6 (0.2-1.0) mg/dL AST 14 (10-42) IU/L ALT 13 (10-60) IU/L Alkaline Phosphatase 38 L (42-121) IU/L Troponin I High Sens 7.1 (2.3-19.7) ng/L Total Protein 4.7 L (6.7-8.2) g/dL Albumin 2.6 L (3.2-5.5) g/dL Globulin 2.1 (2.1-4.2) g/dL Albumin/Globulin Ratio 1.2 (1.0-2.2) Lipase 50 (22-51) U/L Urine Color Urine Clarity (CLEAR) Urine pH (5.0-7.5) PH Ur Specific [place] (1.002-1.030) Urine Protein (NEGATIVE) mg/dL Urine Glucose (UA) (NEGATIVE) mg/dL Urine Ketones (NEGATIVE) mg/dL Urine Occult Blood (NEGATIVE) Urine Nitrite (NEGATIVE) Urine Bilirubin (NEGATIVE) Urine Urobilinogen (NORMAL) E.U./dL Ur Leukocyte Esterase (NEGATIVE) Ur Microscopic Review Urine Culture Comments Blood Type Blood Type Recheck B POSITIVE Antibody Screen Crossmatch IS Only 02/23/23 Range/Units 20:05 WBC 6.9 (4.8-10.8) x10^3/uL RBC 1.86 L (4.70-6.10) 10^6/uL Hgb 6.1 L* (14.0-18.0) g/dL Hct 18.7 L* (42.0-52.0) % MCV 100.5 H (80.0-94.0) fL MCH 32.8 H (27.0-31.0) pg MCHC 32.6 (32.0-36.0) g/dL RDW 15.1 H (12.0-15.0) % Plt Count 312 (130-450) 10^3/uL MPV 8.8 (7.4-11.4) fL Neut # (Auto) 5.8 (1.5-6.6) 10^3/uL Lymph # (Auto) 0.8 L (1.5-3.5) 10^3/uL [place] # (Auto) 0.3 (0.0-1.0) 10^3/uL Eos # (Auto) 0.0 (0.0-0.7) 10^3/uL Baso # (Auto) 0.0 (0.0-0.1) 10^3/uL Absolute Nucleated RBC 0.00 x10^3/uL Nucleated RBC % 0.0 /100WBC PT (9.9-12.6) secs INR (0.8-1.2) APTT (24.9-33.3) secs Sodium (135-145) mmol/L Potassium (3.5-5.0) mmol/L Chloride (101-111) mmol/L Carbon Dioxide (21-32) mmol/L Anion Gap (6-13) BUN (6-20) mg/dL Creatinine (0.6-1.2) mg/dL Estimated GFR (MDRD) (>89) Glucose (70-100) mg/dL Calcium (8.5-10.3) mg/dL Total Bilirubin (0.2-1.0) mg/dL AST (10-42) IU/L ALT (10-60) IU/L Alkaline Phosphatase (42-121) IU/L Troponin I High Sens (2.3-19.7) ng/L Total Protein (6.7-8.2) g/dL Albumin (3.2-5.5) g/dL Globulin (2.1-4.2) g/dL Albumin/Globulin Ratio (1.0-2.2) Lipase (22-51) U/L Urine Color Urine Clarity (CLEAR) Urine pH (5.0-7.5) PH Ur Specific [place] (1.002-1.030) Urine Protein (NEGATIVE) mg/dL Urine Glucose (UA) (NEGATIVE) mg/dL Urine Ketones (NEGATIVE) mg/dL Urine Occult Blood (NEGATIVE) Urine Nitrite (NEGATIVE) Urine Bilirubin (NEGATIVE) Urine Urobilinogen (NORMAL) E.U./dL Ur Leukocyte Esterase (NEGATIVE) Ur Microscopic Review Urine Culture Comments Blood Type Blood Type Recheck Antibody Screen Crossmatch IS Only Assessment/Plan - Problem List (1) Anemia Impression: he does not wish surgery or procedures or even antibiotics Qualifiers: Anemia type: unspecified type Qualified Code(s): D64.9 - Anemia, unspecified
[2023-02-24] MEDS: MORPHINE SOL 10 MG/0.5 ML ORAL SYRINGE PO PRN ×2 (14:44→18:57)
[2023-02-25] MEDS ORDERED: SCOPOLAMINE PATCH TOP SCH (08:06)
[2023-02-25 10:06] VITALS: BP 72/38
--- NOTE | 2023-02-25 12:27 | CONSULTATION NOTE ---
Referring Provider Name of Referring Provider:: Hospitalist team Consult Date: 02/25/23 Chief Complaint - Chief Complaint Chief Complaint: 82 yo gentleman w/hx of hyperlipidemia with perforated viscus History of Present Illness - Admitted From Admitted From:: Home - History of Present Illness HPI Comment/Other: Pt has no significant documented medical history and is comatose and unable to provide history. All history is obtained from medical records. Pt presented via EMS to the ED on the evening of 02/23/23 c/o severe abdominal pain and left shoulder pain that had been worsening for 3-4 days. Initially the pain was controlled w/aspirin and naproxen but had become progressively worse to the point of calling EMS. He denied any N/V. He was noted to be a difficult historian. In the ED, he was noted to have a Hgb 6.1. He was also mildly hypotensive and guaiac positive. He received 2 units of PRBCs. He underwent CXR which showed low lung volumes w/L retrocardiac atelectasis/consolidation. CT of the abdomen and pelvis was done which showed small/moderate pneumoperitoneum and free fluid in the upper abdomen consistent with sequelae of perforated viscus. There was also a focal area of hypoenhancement in the posterior gastric wall within the antrum suspicious for site of perforation (gastric ulcer). Mild segmental small bowel thickening consistent w/mild enteritis. General surgery consultation was obtained and Dr. Norwood felt that pt would likely in surgery. Pt also expressed to Dr. Norwood that he did not want any intervention (including zaman catheter) and felt ready to . He was admitted to the hospitalist service for medical mgmt and treatment of pain. He was noted to be unresponsive and hypotensive the day after admission. Hospice MD consult was requested for consideration of GIP, but POA was not available until today. Pt has received a total of 2 doses of po morphine and one of IV morphine in the past 24 hours. He has a zaman in place and has had very little output. He is comatose and actively dying. History - Past Medical History Cardiovascular: reports: High cholesterol Respiratory: reports: None Neuro: reports: None Endocrine/Autoimmune: reports: None GI: reports: None : reports: None Psych: reports: Depression Musculoskeletal: reports: None Derm: reports: None MRSA Hx?: No Other Past Medical History: reported decreased quality of life over past several years to neighbor. Patient had denies past medical history to ED staff. Now wants to sleep and not answer questions - POLST Patient has POLST: No Meds/Allgy - Allergies Allergies/Adverse Reactions: Allergies Allergy/AdvReac Type Severity Reaction Status Date / Time No Known Drug Allergies Allergy Verified 02/23/23 19:29 Review of Systems - Other Findings Other Findings: Unable to obtain d/t comatose status Exam - Vital Signs Reviewed Vital Signs: Yes Vital Signs: Vital Signs x48h Temp Pulse Resp BP Pulse Ox 02/25/23 09:55 95 16 72/38 L 90 L 02/25/23 08:40 36.9 C 94 11 L 75/41 L 95 BP 70/35, HR 94, O2 sat couldn't be obtained, RR 8-10 - Physical Exam General Appearance: positive: No acute distress, Other (comatose elderly male, appears comfortable) Eyes Bilateral: positive: Normal inspection, No lid inflammation, Conjunctivae nml ENT: positive: ENT inspection nml, Pharynx nml Neck: positive: Nml inspection, No JVD, Trachea midline. negative: Thyromegaly Respiratory: positive: No respiratory distress, Rales Cardiovascular: positive: Regular rate & rhythm, No murmur, No gallop Peripheral Pulses: positive: 1+ Abdomen: positive: Non-tender, No organomegaly, No distention, Other (absent bowel tones). negative: Guarding, Rebound Skin: positive: No rash, Pallor, Other (slight mottling to Left foot, bilateral feet/ankles cool to touch but pulses are intact, albeit weak) Conclusion/Plan - Lab Results Fish Bones: 02/23/23 20:05 02/23/23 20:05 - Other Other Results/Comments: 1. Perforated gastric ulcer 2. Acute upper GI bleed 2. Acute blood loss anemia 3. Hypotension, likely d/t blood loss 4. Comatose 5. Azotemia d/t GI bleed from perforated gastric ulcer 6. Low albumin state Unfortunately, Mr. Ponce suffered a catastrophic perforated ulcer w/acute abdomen, UGIB and acute blood loss anemia requiring transfusion on the date of admission. He is now actively dying. He appears very comfortable presently, has some mild mottling to the left foot and appears imminent. His prognosis is hours. As his symptoms are well-managed currently, he does not meet GIP criteria for hospice admission. Thank you for allowing us to be involved in your patient's care. Please feel free to call me w/questions.
--- NOTE | 2023-02-25 16:45 | Discharge Plan ---
Discharge Plan Problem Reviewed?: Yes Disposition: 20 No Smoking: If you smoke, Please STOP! Call for help. Follow-up with: José Manuel Ornelas MD [Primary Care Provider] -
--- NOTE | 2023-02-25 16:45 | DISCHARGE SUMMARY ---
Discharge Summary Admit Date: 02/24/23 Discharge Date: 02/25/23 Discharging Provider: Dr Vivienne King Primary Care Provider: Dr José Manuel Ornelas Code Status: Do Not Attempt Resuscitation Discharge Disposition: 20 - HPI History of Present Illness: 82 yo white M with no PMH and on no meds presented via EMS to the ER with c/o 4 day of abdominal pain. Pt c/o diffuse abdominal pain, worse with movement. Pt took Alleve and ASA with minimal relief. Pain is radiating to L shoulder. No fever or chills. No N/V/D. Pt has been depressed. Prior to this, he had asked neighbor to find a way to end his life. He feels that he has no quality of life. In the ER, BP 81/56, Hgb 6.1, MCV 100.5, K 3.2, fecal occult blood (+), INR 1.3. His abdominal exam showed diffuse tenderness with rebound tenderness and voluntary guarding CXR: Atelectasis. CT Abdom: small-mod pneumoperitoneum and free fluid in upper abdomen c/w sequelae of perforated viscous, possibly perforated gastric ulcer. ER Physician consulted Dr. Norwood, General Surgeon, who did not recommend surgery as Dr Norwood does not believe pt would survive surgery; recommends admit to Hospitalist service. ED provider spoke to the patient and the patient wanted no aggressive management, requested treating with a goal being comfort. Pt was given IV fluids, iv Zosyn, 2U PRBC, iv Dilaudid, iv Zofran, Protonix IV in the ER. The [facility] night Hospitalist admitted this patient. - HOSPITAL COURSE Hospital Course: (1) Perforated abdominal viscus He had a perforated abdominal viscus, possibly perforated gastric ulcer after presenting with abdominal pain of 4 days duration, he had hypotension, marked anemia and was found to have guaic (+) stool. Dr. Norwood, the General Surgeon, did not recommend surgery, as he did not believe pt would survive surgery. Patient was brought in on the Hospitalist service and orders were written for his comfort to include IV narcotics, turning and repositioning, oral care, and a Palliative care consult was ordered. The patient continued to decline, thus the Palliative consult was canceled. A Hospice consult was ordered for GIP but he quickly deteriorated and on 02/25/2023 at 1350, with his ex- at his bedside. - ALLERGIES Allergies/Adverse Reactions: Allergies Allergy/AdvReac Type Severity Reaction Status Date / Time No Known Drug Allergies Allergy Verified 02/23/23 19:29 - LABS Result Diagrams: 02/23/23 20:05 02/23/23 20:05
== END 2023-02-25 15:50 | disposition expired | DRG 380 ==
LOC: EDUNIT# → ED 19:09 → MS3 02-24 01:47
PROVIDERS: ADMIT Internal Medicine; ATTEND Internal Medicine
DX: R10.32 Left lower quadrant pain (principal); D64.9 Anemia, unspecified; K25.5 Chronic or unspecified gastric ulcer with perforation; I49.1 Atrial premature depolarization; I49.3 Ventricular premature depolarization; R40.20 Unspecified coma; D62 Acute posthemorrhagic anemia; J98.11 Atelectasis; R19.5 Other fecal abnormalities; I95.9 Hypotension, unspecified; F32.A Depression, unspecified; R79.89 Other specified abnormal findings of blood chemistry; E78.00 Pure hypercholesterolemia, unspecified; E88.09 Other disorders of plasma-protein metabolism, not elsewhere classified; Z51.5 Encounter for palliative care; Z66 Do not resuscitate
CPT/HCPCS: 36415; 71045; 74177; 80053; 81003; 82272; 83690; 84484; 85025; 85610; 85730; 86850; 86900; 86901; 86920; 93005; 96361; 96365; 96375; 99285; A9270; J1170; J3490; P9016; Q9967; 81001; 83605; 87086